=== PATIENT | male | born 1940 | race Caucasian/White ===

== ENCOUNTER 2019-09-05 05:50 | Day surgery (SDC) | payer MEDICARE, OTHER ==
[~2019-09-05] VITALS: Ht 177.8 cm; Wt 86.6 kg
--- OUTSIDE RECORDS SUMMARY | ~2019-09-05 | XMS | Clinical Summary ---
Demographics + + + | Address | [address] | | | [place] [address] | + + + | Home Phone | | + + + | Preferred Language | Unknown | + + + | Marital Status | | + + + | Hindu Affiliation | Unknown | + + + | Race | Unknown | + + + | Ethnic Group | Unknown | + + + Author + + + | Author | [facility] | | | and [place] | + + + | Organization | [facility] | | | and [place] | + + + | Address | Unknown | + + + | Phone | Unavailable | + + + Support + + +---------+ + | Name | Relationship | Address | Phone | + + +---------+ + | Niya Villeda | ECON | Unknown | | + + +---------+ + Care Team Providers + +------+ + | Care Manager Of Drilling Name | Role | Phone | + +------+ + PCP | Unavailable | + +------+ + Allergies + + + + + + | Active Allergy | Reactions | Severity | Noted | Comments | | | | | Date | | + + + + + + | Lisinopril | Cough | Low | 06/13/20 | | | | | | 16 | | + + + + + + Medications + + + +---------+------+------+-------+ | Medication | Sig | Dispensed | Refills | Star | End | Statu | | | | | | t | Date | s | | | | | | Date | | | + + + +---------+------+------+-------+ | tamsulosin | Take 0.4 mg by mouth | | 0 | 07/2 | | Activ | | (FLOMAX) 0.4 mg CAPS | After dinner. | | | 9/20 | | e | | | | | | 16 | | | + + + +---------+------+------+-------+ | fluticasone | 1 spray by Nasal | | 0 | 07/2 | | Activ | | (VERAMYST) 27.5 | route as needed for | | | 9/20 | | e | | MCG/SPRAY nasal | Rhinitis. | | | 16 | | | | spray | | | | | | | + + + +---------+------+------+-------+ | levothyroxine | Take 75 mcg by mouth | | 0 | 07/2 | | Activ | | (SYNTHROID) 75 MCG | every morning | | | 9/20 | | e | | tablet | before breakfast. | | | 16 | | | + + + +---------+------+------+-------+ | omeprazole | Take 40 mg by mouth | | 0 | 07/2 | | Activ | | (PRILOSEC) 40 MG | daily. | | | 9/20 | | e | | capsule | | | | 16 | | | + + + +---------+------+------+-------+ | losartan (COZAAR) | Take 100 mg by mouth | | 0 | 07/2 | | Activ | | 100 MG tablet | daily. | | | 9/20 | | e | | | | | | 16 | | | + + + +---------+------+------+-------+ | atorvaSTATin | Take 40 mg by mouth | | 0 | 07/2 | | Activ | | (LIPITOR) 40 mg | daily. | | | 9/20 | | e | | tablet | | | | 16 | | | + + + +---------+------+------+-------+ | terazosin (HYTRIN) | Take 5 mg by mouth | | 0 | 07/2 | | Activ | | 5 mg capsule | nightly. | | | 9/20 | | e | | | | | | 16 | | | + + + +---------+------+------+-------+ | primidone | Take 50 mg by mouth | | 0 | 07/2 | | Activ | | (MYSOLINE) 50 mg | daily. | | | 20 | | e | | tablet | | | | 16 | | | + + + +---------+------+------+-------+ | amLODIPine | Take 5 mg by mouth | | 0 | 08/0 | | Activ | | (NORVASC) 5 mg | daily. | | | 12/05 | | e | | tablet | | | | 17 | | | + + + +---------+------+------+-------+ | finasteride | Take 1 tablet by | 90 | 3 | 11/0 | | Activ | | (PROSCAR) 5 mg | mouth daily. 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 | + + Last Filed Vital Signs + + + + | Vital Sign | Reading | Time Taken | + + + + | Blood Pressure | - | - | + + + + | Pulse | 68 | 06/16/2017 1140 PDT | + + + + | Temperature | - | - | + + + + | Respiratory Rate | - | - | + + + + | Oxygen Saturation | - | - | + + + + | Inhaled Oxygen | - | - | | Concentration | | | + + + + | Weight | 82.6 kg (182 lb) | 06/16/20171139 PDT | + + + + | Height | 177.8 cm (5' 10") | 06/16/20171139 PDT | + + + + | Body Mass Index | 26.11 | 06/16/20171139 PDT | + + + + Plan of Treatment + + + + + | Health Maintenance | Due Date | Last Done | Comments | + + + + + | Vaccine: | | | | | Dtap/Tdap/Td (1 - | 8 | | | | Tdap) | | | | + + + + + | Vaccine: Zoster (1 | | | | | of 2) | 9 | | | + + + + + | Vaccine: | | | | | Pneumococcal 65+ | 4 | | | | Low/Medium Risk (1 | | | | | of 2 - PCV13) | | | | + + + + + | Vaccine: Influenza | | | | | (#1) | 9 | | | + + + + + Results Not on filefrom Last 3 Months
--- OUTSIDE RECORDS SUMMARY | ~2019-09-05 | XMS | Clinical Summary ---
Demographics + + + | Address | [address] | | | [place] [address] | + + + | Home Phone | | + + + | Preferred Language | Unknown | + + + | Marital Status | | + + + | Anabaptist Affiliation | Unknown | + + + | Race | Unknown | + + + | Ethnic Group | Unknown | + + + Author + + + | Author | [facility] (Historical as of | | | 07-02-19) | + + + | Organization | [facility] (Historical as of | | | 07-02-19) | + + + | Address | Unknown | + + + | Phone | Unavailable | + + + Support + + +---------+ + | Name | Relationship | Address | Phone | + + +---------+ + | Niya Villeda | ECON | Unknown | | + + +---------+ + | Jose R Bishop | ECON | Unknown | | + + +---------+ + | Message,Detailed | ECON | Unknown | | + + +---------+ + Care Team Providers + +------+ + | Care Blend Technician Name | Role | Phone | + +------+ + PP | Unavailable | + +------+ + Allergies + + + + + + | Active Allergy | Reactions | Severity | Noted | Comments | | | | | Date | | + + + + + + | Lisinopril | Cough | Low | 06/13/20 | | | | | | 16 | | + + + + + + Current Medications + + +--------+---------+------+------+-------+ | Prescription | Sig. | Disp. | Refills | Star | End | Statu | | | | | | t | Date | s | | | | | | Date | | | + + +--------+---------+------+------+-------+ | tamsulosin | Take 0.4 mg by mouth | | | | | Activ | | (FLOMAX) 0.4 MG | After dinner. | | | | | e | | capsule | | | | | | | + + +--------+---------+------+------+-------+ | fluticasone | 1 spray by Nasal | | | | | Activ | | (VERAMYST) 27.5 | route as needed for | | | | | e | | MCG/SPRAY nasal | Rhinitis. | | | | | | | spray | | | | | | | + + +--------+---------+------+------+-------+ | levothyroxine | Take 75 mcg by mouth | | | | | Activ | | (SYNTHROID) 75 MCG | every morning | | | | | e | | tablet | before breakfast. | | | | | | + + +--------+---------+------+------+-------+ | omeprazole | Take 40 mg by mouth | | | | | Activ | | (PRILOSEC) 40 MG | daily. | | | | | e | | capsule | | | | | | | + + +--------+---------+------+------+-------+ | losartan (COZAAR) | Take 100 mg by mouth | | | | | Activ | | 100 MG tablet | daily. | | | | | e | + + +--------+---------+------+------+-------+ | atorvastatin | Take 40 mg by mouth | | | | | Activ | | (LIPITOR) 40 MG | daily. | | | | | e | | tablet | | | | | | | + + +--------+---------+------+------+-------+ | terazosin (HYTRIN) | Take 5 mg by mouth | | | | | Activ | | 5 MG capsule | nightly. | | | | | e | + + +--------+---------+------+------+-------+ | primidone | Take 50 mg by mouth | | | | | Activ | | (MYSOLINE) 50 MG | daily. | | | | | e | | tablet | | | | | | | + + +--------+---------+------+------+-------+ | amLODIPine | Take 5 mg by mouth | | | | | Activ | | (NORVASC) 5 MG | daily. | | | | | e | | tablet | | | | | | | + + +--------+---------+------+------+-------+ | finasteride | Take 1 tablet by | 90 | 3 | 11/0 | | Activ | | (PROSCAR) 5 MG | mouth daily. | tablet | | 06/04 | | e | | tablet | | | | 17 | | | + + +--------+---------+------+------+-------+ Active Problems + + + | Problem [...] | | + +-------+ +--------+------+ + + +---------+ + | Alcohol Use | Drinks/We | oz/Week | Comments | | | ek | | | + + +---------+ + | Yes | | | | + + +---------+ + + + + | Sex Assigned at | Date Recorded | | | | + + + | Not on file | | + + + Last Filed Vital Signs + + + + | Vital Sign | Reading | Time Taken | + + + + | Blood Pressure | - | - | + + + + | Pulse | 68 | 06/16/2017 11:36 AM PDT | + + + + | Temperature | - | - | + + + + | Respiratory Rate | - | - | + + + + | Oxygen Saturation | 98% | 06/16/2017 11:36 AM PDT | + + + + | Inhaled Oxygen | - | - | | Concentration | | | + + + + | Weight | 82.6 kg (182 lb) | 06/16/2017 11:36 AM PDT | + + + + | Height | 177.8 cm (5' 10") | 06/16/2017 11:36 AM PDT | + + + + | Body Mass Index | 26.11 | 06/16/2017 11:36 AM PDT | + + + + Plan [...] Results Not on filefrom Last 3 Months Insurance + +--------+ +------+-------+ + | Payer | Benefi | Subscriber | Type | Phone | Address | | | t Plan | ID | | | | | | / | | | | | | | Group | | | | | + +--------+ +------+-------+ + | MEDICARE | MEDICA | [id number] | | | [address] | | | RE | | | | [place] [phone] | | | IP-OP | | | | | + +--------+ +------+-------+ + | AETNA | AETNA | [id number] | | | | | | GENERI | | | | | | | C | | | | | + +--------+ +------+-------+ + + +--------+ +--------+ + + | Guarantor Name | Accoun | Relation to | Date | Phone | Billing Address | | | t Type | Patient | of | | | | | | | | | | + +--------+ +--------+ + + | SEBASTIAN BISHOP | Person | Self [birth year] Home: | [address] | | | al/Fam | | 1940 | [phone] [place], [place] | | | avi | | | [phone] | [phone] | + +--------+ +--------+ + +
--- OUTSIDE RECORDS SUMMARY | ~2019-09-05 | XMS | Encounter Summary ---
Demographics + + + | Address | [address] | | | [place] [address] | + + + | Home Phone | | + + + | Preferred Language | Unknown | + + + | Marital Status | | + + + | Tenriism Affiliation | Unknown | + + + | Race | White | + + + | Ethnic Group | Not or | + + + Author + + + | Author | [facility] | + + + | Organization | [facility] | + + + | Address | Unknown | + + + | Phone | Unavailable | + + + Support + + + + + | Name | Relationship | Address | Phone | + + + + + | Jose R Sutton | ECON | [address] | | | | | [place] | | | | | [address] | | + + + + + Care Team Providers + +------+ + | Care Center Specialists Name | Role | Phone | + +------+ + | Rip Payton MD | PCP | | + +------+ + Encounter Details +--------+ + + + + | Date | Type | Department | Care Team | Description | +--------+ + + + + | 10/16/ | Documentati | Otolaryngology | Rip Siddiqui | | | 2017 | on | Head and Neck | MD [facility] [address] | | | | | Surgery Services at | [address] | | | | | PPV [phone] | [place], [place] | | | | | [address] | [address] | | | | | Mailcode: [id number] | [phone] | | | | | [facility] | | | | | | [place], [place] | | | | | | [address] | | | | | | [phone] | | | +--------+ + + + + Social History + +-------+ +--------+ + | Tobacco Use | Types | Packs/Day | Years | Date | | | | | Used | | + +-------+ +--------+ + | Former Smoker | | | | 1956 - 1990 | + +-------+ +--------+ + + +---+---+---+ | Smokeless Tobacco: | | | | | Former User | | | | + +---+---+---+ + + +---------+ + | Alcohol Use | Drinks/Week | oz/Week | Comments | + + +---------+ + | Yes | 2 Glasses of wine | 2.0 | | + + +---------+ + + [...] recent travel history available. | + + documented as of this encounter Plan of Treatment Not on filedocumented as of this encounter Visit Diagnoses Not on filedocumented in this encounter"
--- OUTSIDE RECORDS SUMMARY | ~2019-09-05 | XMS | Encounter Summary ---
Demographics + + + | Address | [address] | | | [place] [address] | + + + | Home Phone | | + + + | Preferred Language | Unknown | + + + | Marital Status | | + + + | Moravian Affiliation | Unknown | + + + | Race | White | + + + | Ethnic Group | Not or | + + + Author + + + | Author | [facility] | + + + | Organization | [facility] | + + + | Address | Unknown | + + + | Phone | Unavailable | + + + Support + + + + + | Name | Relationship | Address | Phone | + + + + + | Jose R Sutton | ECON | [address] | | | | | [place] | | | | | [address] | | + + + + + Care Team Providers + +------+ + | Care Cereal Supervisor Name | Role | Phone | + +------+ + | Rip Payton MD | PCP | | + +------+ + Encounter Details +--------+ + + + + | Date | Type | Department | Care Team | Description | +--------+ + + + + | 10/05/ | Abstract | Otolaryngology | Willis Sanon, | | | 2017 | | Head and Neck | [address] | | | | | Surgery Services at | [address] | | | | | [phone] | [place], [place] | | | | | [address] | [address] | | | | | Mailcode: [address] | [phone] | | | | | [facility] | | | | | | [place], [place] | | | | | | [address] | | | | | | [phone] | | | +--------+ + + + + Social History + +-------+ +--------+------+ | Tobacco Use | Types | Packs/Day | Years | Date | | | | | Used | | + +-------+ +--------+------+ | Never Assessed | | | | | + +-------+ [...]
--- OUTSIDE RECORDS SUMMARY | ~2019-09-05 | XMS | Encounter Summary ---
Demographics + + + | Address | [address] | | | [place] [address] | + + + | Home Phone | | + + + | Preferred Language | Unknown | + + + | Marital Status | | + + + | Faith Affiliation | Unknown | + + + [...] [place] | | | | | [address] | | + + + + + Care Team Providers + +------+ + | Care Vp Cardiovascular Service Line Name | Role | Phone | + +------+ + | Rip Payton MD | PCP | | + +------+ + Encounter Details +--------+ + + + + | Date | Type | Department | Care Team | Description | +--------+ + + + + | 10/29/ | Telephone | Otolaryngology | Rip Siddiqui | | | 2017 | | Head and Neck | MD [facility] [address] | | | | | Surgery Services at | [address] | | | | | [phone] | [place], [place] | | | | | [address] | [address] | | | | | Mailcode: [id number] | [phone] | | | | | [facility] | | | | | | [place], [place] | | | | | | [address] | | | | | | [phone] | | | +--------+ + + + [...]
--- OUTSIDE RECORDS SUMMARY | ~2019-09-05 | XMS | Encounter Summary ---
Demographics + + + | Address | [address] | | | [place] [address] | + + + | Home Phone | | + + + | Preferred Language | Unknown | + + + | Marital Status | | + + + | Scientologist Affiliation | Unknown | + + + | Race | White | + + + | Ethnic Group | Not or | + + + Author + + + | Author | [facility] | + + + | Organization | [facility] | + + + | [...] [place] | | | | | [address] | | + + + + + Care Team Providers + +------+ + | Care Marine Drafter Name | Role | Phone | + +------+ + | Rip Payton MD | PCP | | + +------+ + Reason for Visit Consultation (Routine) +--------+--------+ + + + + | Status | Reason | Specialty | Diagnoses / | Referred By | Referred To | | | | | Procedures | Contact | Contact | +--------+--------+ + + + + | Closed | | Otolaryngolog | Diagnoses | Josiane, | Artur, | | | | y | | Pedro Pablo Hat[place], | Rip Glynn MD | | | | | Natalie | | [address] [facility] | | | | | s, | [place] | [facility] | | | | | unspecified | HEAD & NECK | [address] [place], | | | | | | [address] | [place] | | | | | | [address] | [address] | | | | | | [address] | Phone: | | | | | | [place], | [phone] | | | | | | [place] [address] | Fax: | | | | | | Phone: | [phone] | | | | | | [phone] | | | | | | | Fax: | | | | | | | [phone] | | +--------+--------+ + + + + Encounter Details +--------+---------+ + + + | Date | Type | Department | Care Team | Description | +--------+---------+ + + + | 10/12/ | Office | Otolaryngology | Rip Siddiqui | Submandibular duct | | 2017 | Visit | Head and Neck | MD Renard [address] | obstruction (Primary | | | | Surgery Services at | [facility] [address] | Dx) | | | | [facility] [address] | [place], [place] | | | | | [address] | [address] | | | | | Mailcode: PV01 | [phone] | | | | | [facility] | | | | | | [place], [place] | | | | | | [address] | | | | | | [phone] | | | +--------+---------+ + + + Social History + +-------+ [...] + + documented as of this encounter Last Filed Vital Signs + + + + + | Vital Sign | Reading | Time Taken | Comments | + + + + + | Blood Pressure | 124/80 | 10/12/2017 2:24 PM | | | | | PST | | + + + + + | Pulse | 64 | 10/12/2017 2:24 PM | | | | | PST | | + + + + + | Temperature | - | - | | + + + + + | Respiratory Rate | - | - | | + + + + + | Oxygen Saturation | - | - | | + + + + + | Inhaled Oxygen | - | - | | | Concentration | | | | + + + + + | Weight | 81.6 kg (179 lb 12.8 | 10/12/2017 2:24 PM | | | | oz) | PST | | + + + + + | Height | - | - | | + + + + + | Body Mass Index | - | - | | + + + + + documented in this encounter Progress Notes Rip Siddiqui MD - 10/12/2017 2:[address] Boswell's note for the com plete details of the history and physical exam. I reviewed the resident's findings and repea kacy these components of the physical exam: complete history and complete physical examira Thorne participated in the formulation of the diagnosis and treatment plan. Briefly, Mr. Sutton is 77y M with recurrent left submandibular sialadenitis. Will obtain a CT scan of the neck to assess for sialoliths not appreciated on exam. Will call him with the results of this ex am when available. He does not want a submandibular gland excision, but would like to pursu e sialendoscopy; if his scan does not show any obvious contraindication to this, will procee d with sialendoscopy in the near future. Rip Siddiqui MD PhD Software Engineering Supervisor, Head & Neck Surgery and Oncology [email or web address] Mary Carmen Bear MD - 10/12/2017 2:15 PM PST HEAD AND NECK SURGERY NEW PATIENT CLINIC NOTE Chief complaint: intermittent submandibular gland swelling History of Present Illness: Sebastian Sutton is a 77 y.o. male seen in consultation fr om Dr. Joshua regarding management of a left sided submandibular gland swelling. Mr. Sutton has had this problem for over 20 years. He was initially diagnosed by an oral surg jazmin who injected dye into the duct and took x-rays. He was offered surgery but declined due to risks associated with it. He has continue to have intermittent swelling since that time. It is associated with eating, increases with food intake. Sometimes the swelling will stick around for a few weeks but usually not that long. He can sometimes shoot out saliva when it gets under pressure. It is uncomfortable when it swells up, but not extremely painful, and raymond orozco can still continue with his day. He has never had an infection (denies any associated eryt kale, every taking antibiotics, or extremely painful episodes). The discomfort is bothersome , and he also doesn't like the way that it looks. Today is about an average day. He has swel led up to the point that he "looks like a chipmunk." Review of Systems: 14 systems reviewed and pertinent positives/negatives reported in the HPI above. Please see patient intake questionnaire for the remainder of ROS reviewed. Allergies and Sensitivities: Lisinopril No current outpatient prescriptions on file. No current facility-administered medications for this visit. No past medical history on file. No past surgical history on file. Social History: Social History Substance Use Topics Smoking status: Former Smoker Start date: 1956 Quit date: 1990 Smokeless tobacco: Former User Alcohol use 1.2 oz/week 2 Glasses of wine per week Wine with dinner Family history breast cancer in mother Examination: BP 124/80 | Pulse 64 | Wt 81.6 kg (179 lb 12.8 oz) General: Well nourished, well-developed patient, calm Face: no facial deformities or dysmorphic features, no facial tenderness Eyes: sclera anicteric, conjunctiva pink Ears: Right external ear, external auditory canal, and tympanic membrane normal, no effusi ons or lesions. Left external ear, external auditory canal, and tympanic membrane normal, no effusions or lesions Nose: Normal external appearance, anterior rhinoscopy demonstrates healthy pink mucosa, no concerning lesions Oral cavity: Normal inter-incisal distance, fair dentition, lower partial denture,normal bu ccal mucosa, floor of mouth, oral tongue, retromolar trigone, alveolar ridges, hard palate, on inspection and palpation. No stone palpated in the duct, submandibular gland on the left is enlarged compared the the right, no discrete mass within the gland, non-tender. Saliva is not easily expressed from the left. Oropharynx: Normal tonsillar pillars, tongue base, soft palate, pharyngeal wall on inspecti on. Tonsils and uvula surgically absent. Neck: On inspection and palpation, no cervical lymphadenopathy identified, no palpable thyr oid lesions, and the trachea is in the midline. L submandibular salivary gland enlarged. Respiratory and Voice: normal respiratory effort, no stridor, slightly rough voice Cardiovascular: regular heart rate Skin: no obvious skin lesions within scalp, head or neck skin Assessment: 77 yo male with left sided submandibular gland swelling. There are no palpable stones on ex am, but we do not have a CT scan. We discussed his options, including conservative managemen t (as he has been doing), sialoendoscopy, and gland excision. He does not desire removal and so sialoendoscopy was discussed in detail. We discussed risks and benefits, including that not everyone has improvement after this, and improvement may be transient. He is interested in sialoendoscopy. Plan: 1. Obtain CT scan (in [place]). 2. We will call him after the CT scan is done and discuss results and schedule him if appro priate (i.e. No large stone that would preclude endoscopy, nothing concerning for malignancy , although this is very unlikely). Mary Carmen Boswell MD Otolaryngology, PGY-2 Pager [phone] documented in this encounter Plan of Treatment Not on filedocumented as of this encounter Visit Diagnoses + + | Diagnosis | + + | Submandibular duct obstruction - Primary Other specified diseases of the salivary | | glands | + + documented in this encounter
--- OUTSIDE RECORDS SUMMARY | ~2019-09-05 | XMS | Clinical Summary ---
Demographics + + + | Address | [address] | | | [place] [address] | + + + | Home Phone | | + + + | Preferred Language | Unknown | + + + | Marital Status | | + + + | Christian Affiliation | Unknown | + + + | Race | White | + + + | Ethnic Group | Not or | + + + Author + + + | Author | [facility] | + + + | Organization | [facility] | + + + | Address | Unknown | + + + | Phone | Unavailable | + + + Support + + + + + | Name | Relationship | Address | Phone | + + + + + | Jose R Sutton | ECON | [address] | | | | | [place] | | | | | [address] | | + + + + + Care Team Providers + +------+ + | Care Granulator Operator Name | Role | Phone | + +------+ + | Rip Payton MD | PCP | | + +------+ + Source Comments [facility] is fully live on both [facility] and [facility] Allergies + + + + + + | Active Allergy | Reactions | Severity | Noted | Comments | | | | | Date | | + + + + + + | Lisinopril | Cough | | 10/12/20 | | | | | | 17 | | + + + + + + Medications + + + +---------+------+------+-------+ | Medication | Sig | Dispensed | Refills | Star | End | Statu | | | | | | t | Date | s | | | | | | Date | | | + + + +---------+------+------+-------+ | atorvastatin 40 mg | Take 40 mg by mouth | | 0 | | | Activ | | oral tablet | once daily | | | | | e | + + + +---------+------+------+-------+ | finasteride 5 mg | Take 5 mg by mouth | | 0 | | | Activ | | oral tablet | once daily | | | | | e | + + + +---------+------+------+-------+ | fluticasone 50 | Instill 2 sprays | | 0 | | | Activ | | mcg/actuation nasal | into each nostril | | | | | e | | spray,suspension | once daily | | | | | | + + + +---------+------+------+-------+ | levothyroxine 75 | Take 75 mcg by mouth | | 0 | | | Activ | | mcg oral tablet | before breakfast | | | | | e | + + + +---------+------+------+-------+ | losartan 100 mg | Take 100 mg by mouth | | 0 | | | Activ | | oral tablet | once daily | | | | | e | + + + +---------+------+------+-------+ | omeprazole 40 mg | Take 40 mg by mouth | | 0 | | | Activ | | oral capsule,delayed | once daily | | | | | e | | release(/ROSA) | | | | | | | + + + +---------+------+------+-------+ | primidone 50 mg | Take 50 mg by mouth | | 0 | | | Activ | | oral tablet | three times daily | | | | | e | + + + +---------+------+------+-------+ | ALBUTEROL SULFATE | Inhale | | 0 | | | Activ | | (PROAIR HFA INHL) | | | | | | e | + + + +---------+------+------+-------+ | tamsulosin 0.4 mg | Take 0.4 mg by mouth | | 0 | | | Activ | | oral | once daily | | | | | e | | capsule,extended | | | | | | | | release 24hr | | | | | | | + + + +---------+------+------+-------+ | terazosin 5 mg | Take 5 mg by mouth | | 0 | | | Activ | | oral capsule | once daily at | | | | | e | | | bedtime | | | | | | + + + +---------+------+------+-------+ | cetirizine 10 mg | Take 10 mg by mouth | | 0 | | | Activ | | oral tablet | once daily | | | | | e | + + + +---------+------+------+-------+ | amLODIPine 5 mg | Take 5 mg by mouth | | 0 | | | Activ | | oral tablet | once daily | | | | | e | + + + +---------+------+------+-------+ Active Problems Not on file Social History + +-------+ +--------+ + | [...] | | + + + + + Plan of Treatment + + + + + | Health Maintenance | Due Date | Last Done | Comments | + + + + + | Pneumococcal | | | | | vaccination (1 of 2 | 4 | | | | - PCV13) | | | | + + + + + | Influenza (Flu) | | | | | vaccination (#1) | 9 | | | + + + + + Results Not on filefrom Last 3 Months Insurance + +--------+ +--------+ + +--------+ | Payer | Benefi | Subscriber | Effect | Phone | Address | Type | | | t Plan | ID | marv | | | | | | / | | Dates | | | | | | Group | | | | | | + +--------+ +--------+ + +--------+ | MEDICARE | MEDICA | xxxxxxxxxx | | [phone] | [address] | [address] | | | RE A & | | [phone] | | | [address] | | esent | | [place] | | | | | | | | [phone] | | + +--------+ +--------+ + +--------+ | AETNA NETWORK | AETNA | xxxxxxxxxx | 01/15/20 | | | PPO | | | NETWOR | | 14-Pre | | | | | | K | | sent | | | | + +--------+ +--------+ + +--------+ + +--------+ +--------+ + + | Guarantor Name | Accoun | Relation to | Date | Phone | Billing Address | | | t Type | Patient | of | | | | | | | | | | + +--------+ +--------+ + + | Sebastian Sutton | Person | Self [birth year] | [address] | | Alex | angella/Fam | | 1940 | [phone] | [place] | | | avi | | | 0 (Home) | [phone] | + +--------+ +--------+ + +"
--- OUTSIDE RECORDS SUMMARY | ~2019-09-05 | XMS | Encounter Summary ---
Demographics + + + | Address | [address] | | | [place] [address] | + + + | Home Phone | | + + + | Preferred Language | Unknown | + + + | Marital Status | | + + + | Adventist Affiliation | Unknown | + + + | Race | White | + + + | Ethnic Group | Not or | + + + Author + + + | Author | [facility] | + + + | Organization | [facility] | + + + | Address | Unknown | + + + | Phone | Unavailable | + + + Support + + + + + | Name | Relationship | Address | Phone | + + + + + | Jose R Sutton | ECON | [address] | | | | | [place] | | | | | [address] | | + + + + + Care Team Providers + +------+ + | Care Value Stream Manager Name | Role | Phone | + +------+ + | Rip Payton MD | PCP | | + +------+ + Encounter Details +--------+ + + + + | Date | Type | Department | Care Team | Description | +--------+ + + + + | 10/29/ | Documentati | Otolaryngology | Rip Siddiqui | | | 2017 | on | Head and Neck | MD Renard [address] | | | | | Surgery Services at | [address] | | | | | [facility] [address] | [place], [place] | | | | | [address] | [address] | | | | | Mailcode: PV01 | [phone] | | | | | [facility] | | | | | | [place], [place] | | | | | | [address] | | | | | | [phone] | | | +--------+ + + + [...]
[~2019-09-05 05:50] MED LIST: ANORO ELLIPTA1 EACH INH; CETIRIZINE HCL10 MG PO; COZAAR100 MG PO; FINASTERIDE5 MG PO; FLOMAX0.4 MG PO; FLONASE ALLERG9.9 ML NAS; LEVOTHYROXINE75 MCG PO; LIPITOR40 MG PO; MYSOLINE50 MG PO; NORVASC2.5 MG PO; PRILOSEC OTC20 MG PO; TERAZOSIN HCL5 MG PO; ZESTRIL5 MG PO; ZOCOR20 MG PO
--- NOTE | 2019-09-05 09:51 | NUR ---
09/05/19 0951 Sheets,Mónica 0941 PT ARRIVED TO PACU ON 10L VIA MASK, RESP EVEN AND UNLABORED. PT ASLEEP AND SNORING NOTED. 500 OUTPUT NOTED IN CBI BAG, BRIGHT RED. CBI RATE INCREASED. PT MINIMALLY REACTIVE TO PAINFUL STIMULI. 0950 PT WOKE TO TACTILE STIMULI AND PT DENIES PAIN. PT DID NOT OPEN HIS EYES AND IS REORIENTED TO PACU. PT BACK TO SLEEP WITH SNORING NOTED.
--- NOTE | 2019-09-05 10:19 | NUR ---
PT ALERT, ORIENTED AND SUPPORTED BY HIS UMESH. BOTH PLEASANT SEEM PEPARED AND HAD FEW QUESTIONS. PT REQUESTED PRAYER, WILL FOLLOW NEEDED
--- NOTE | 2019-09-05 10:38 | NUR ---
PT TO FLOOR VIA BED WITH CHERIE DAIGLE. PT AWAKE AND ALERT. AT BEDSIDE. CBI AT MODERATE DRIP RATE. URINE DARK PINK. DENIES PAIN. ASKED FOR COFFEE. GIVEN ICE WATER AND JELLO FIRST. DENIES NAUSEA.
--- NOTE | 2019-09-05 11:01 | NUR ---
PT A&OX4. ON RA, RESP EVEN AND NON LABORED. VS STABLE. PT TOLERATING PO INTAKE WELL. CBI INFUSING MODERATE DRIP RATE. MED RED CLORED URINE, NO CLOTS NOTED. PT DENIES PAIN. PERSONAL SUPPLIES AND CALL LIGHT WITHIN REACH.
--- NOTE | 2019-09-05 11:30 | NUR ---
PT DOING WELL, SITTING UP IN BED. VS STABLE AT THIS TIME. CBI INFUSING, RED BLOOD NOTED IN BAG, NO CLOTS. PT DENIES PAIN. PERSONAL SUPPLIES WITHIN REACH.
--- NOTE | 2019-09-05 12:23 | NUR ---
PT TO M/S FOLLOWING SURGERY. HE IS ALERT, ORIENTED AND COULD TELL HE SEEMED ALITTLE CHILLED. TURNED TEMP UP IN , AND HAD DARWIN [facility]SU BRING HIM A WARM BLANKET. PT WAS CONCERNED ABOUT THE COLOR OF HIS URINE, LET CHERIE BARRAGAN KNOW. PTS' HAS LEFT TO RUN SOME ERRANDS, WILL RETURN. WILL FOLLOW NEEDED.
--- NOTE | 2019-09-05 12:49 | NUR ---
PT CALL LIGHT ON. PT REQUESTS MORE COFFEE AND WATER. WATER AND COFFEE REFILLED. 3 WAY BLADDER IRRIGATION BAG VERY FULL, EMPTIED. PT ASSISTED WITH ORDERING LUNCH. NO ADDITIONAL REQUESTS OR COMPLAINTS AT THIS TIME. CALL LIGHT WITHIN REACH.
--- NOTE | 2019-09-05 13:55 | NUR ---
pt a&ox4, on ra, resp even and non labored. CBI infusing, pink colored urine. Pt denies pain. Personal supplies and call light within reach.
--- NOTE | 2019-09-05 17:42 | NUR ---
PT EATING DINNER AT THIS TIME, RESP EVEN AND NON LABORED. PT REQUESTING TO TAKE 1700 MEDICATIONS AT HS THIS EVENING. WILL PASS OFF TO NEXT SHIFT. PT HAS NO NEEDS AT THIS TIME. CBI INFUSING, BILLY PATENT AND DRAINING APPROPRIATELY. FAINT RED COLORED URINE. PT DENIES PAIN. NO NEEDS AT THIS TIME. CALL LIGHT WITHIN REACH.
--- NOTE | 2019-09-05 18:18 | NUR ---
PATIENT IN BED TALKING ON THE PHONE. FRESH WATER GIVEN. CALL LIGHT IN REACH. NO FURTHER NEEDS AT THIS TIME.
--- NOTE | 2019-09-05 20:14 | NUR ---
REPORT RECEIVED FROM DAY SHIFT RN. PT LYING IN BED, ALERT AND PLEASANT. AT BEDSIDE. CBI PATENT, BILLY DRAINING LIGHT PINK URINE. CPOX READS 95% ON RA. IV FLUIDS INFUSING WITHOUT ISSUE. PT DENIES OTHER NEEDS AT THIS TIME. CALL LIGHT IN REACH.
--- NOTE | 2019-09-05 23:06 | NUR ---
PT LYING IN BED, ALERT AND ORIENTED. ASSESSMENT COMPLETE. PM MEDS GIVEN WITHOUT DIFFICULTY. CBI PATENT, BILLY DRAINING PINK TINGED URINE. NO CLOTS. PT DENIES PAIN, JUST A LITTLE IRRITATION AT THE TIP OF HIS PENIS THAT HE STATES IS FROM THE BILLY CATHETER. SM AMOUNT OF BLOODY DRAINAGE FROM URETHRA NOTED. CPOX IN PLACE, READING 95% ON RA. SCD'S ON. NO OTHER REQUESTS AT THIS TIME. CALL LIGHT IN REACH.
--- NOTE | 2019-09-06 00:24 | NUR ---
PT AWAKE, STATES HE'S BEEN UNABLE TO FALL ASLEEP. REFUSES SLEEP AID. SLEEP MASK AND EARPLUGS PROVIDED EARLIER IN THE SHIFT. PT DENIES PAIN. CPOX 92-95% ON RA. BILLY DRAINING PINK TINGUED URINE, NO CLOTS NOTED. PT DENIES OTHER NEEDS AT THIS TIME.
--- NOTE | 2019-09-06 02:29 | NUR ---
PT IN BED RESTING WITH EYE MASK ON. ASSESSMENT COMPLETE. PT DENIES PAIN. CBI PATENT, BILLY DRAINING PINK TINGED URINE. NO CLOTS NOTED. SCD'S IN PLACE, CPOX READS 94% ON RA. PT DENIES NEEDS AT THIS TIME.
--- NOTE | 2019-09-06 05:01 | NUR ---
PT RESTED WELL THROUGHOUT THE NIGHT. CBI CLAMPED AT 0230. BILLY CONTINUES TO DRAIN PINK TINGED URINE, NO CLOTS NOTED. PT DENIES PAIN. PT ANEESH REG DIET. CPOX IN PLACE, READING 92-95% ON RA. PT TO REMAIN ON BED REST, SCD'S IN PLACE. NS @ 100 ML/HR.
--- NOTE | 2019-09-06 06:45 | NUR ---
PT RESTING IN BED WITH EYE MASK ON. FLUSHED CBI LINE, BILLY DRAINING LIGHT PINK URINE. SOME SEDIMENT NOTED. PT CONTINUES TO DENY PAIN. CPOX IN PLACE, 94% ON RA. COFFEE GIVEN. CALL LIGHT IN REACH.
[2019-09-06] MEDS ORDERED: LEVAQUIN500 MG PO (09:02)
[2019-09-06] MEDS ORDERED: PERCOCET 5-3251 EACH PO (09:03)
--- NOTE | 2019-09-06 09:43 | NUR ---
MED REC COMPLETE
[2019-09-06] MEDS ORDERED: FLOMAX0.4 MG PO (09:45)
--- NOTE | 2019-09-06 12:53 | NUR ---
PT DRESSED AND GETTING READY FOR HIS WC RIDE TO THE DOOR. WE HAD A FIST BVUMP, THANKED ME FOR CHECKING ON HIM. EXTENDED A BLESSING. WILL FOLLOW NEEDED
--- NOTE | 2019-09-06 13:15 | PATH ---
[facility] [address], [place] [address] Signed SPECIMEN(S): A PROSTATE CHIPS SPECIMEN SOURCE: A. PROSTATE CHIPS CLINICAL HISTORY: BPH. FINAL PATHOLOGIC DIAGNOSIS: Prostate, transurethral resection: - Nodular glandular and stromal hyperplasia. - Negative for malignancy and atypia. LJA:cml:C2NR MICROSCOPIC EXAMINATION: Histologic sections of all submitted blocks are examined by light microscopy. These findings, together with the gross examination, support the pathologic diagnosis. GROSS DESCRIPTION: The specimen, labeled "WC, prostate chips," is received in formalin and consists of 29 g of pink-morelos, irregular shaped, rubbery tissue fragments that aggregate measure 11.0 x 6.3 x 2.1 cm. Approximately 30% of the specimen is submitted in eight cassettes (A1-A8). JS (under the direct supervision of a pathologist) The Gross Description was prepared using a voice recognition system. The report was reviewed for accuracy; however, sound-alike word errors, addition and/or deletions may occur. If there is any question about this report, please contact Client Services. PERFORMING LABORATORY: The technical component was performed by [facility], [address] [place] [id number] (Malter Operator: Zulay Henderson MD; CLIA# [id number]). [facility] [address] [address] (Malter Operator: Dangelo Regalado MD; CLIA# [id number]). Diagnostician: Dangelo Regalado MD Pathologist Electronically Signed 09/06/2019 PATIENT NAME: HUA BISHOP PATHOLOGY DATE OF : 38 REPORT #: [id number] PHYSICIAN: [facility] PCP: [facility] DO REPORT IS CONFIDENTIAL AND NOT TO BE RELEASED WITHOUT AUTHORIZATION [address] [place], [place] [address] Signed Copies: ~ PATIENT NAME: HUA BISHOP PATHOLOGY DATE OF : 38 REPORT #: [id number] PHYSICIAN: [facility] PCP: [facility] DO REPORT IS CONFIDENTIAL AND NOT TO BE RELEASED WITHOUT AUTHORIZATION
--- NOTE | 2019-09-06 17:34 | OR ---
[facility] [address] [place], [place] [address] Signed DATE OF OPERATION: 09/05/2019 SURGEON: Magalys Rogel MD PREOPERATIVE DIAGNOSIS: Severe trilobar benign prostatic hyperplasia with active lower urinary tract symptoms. POSTOPERATIVE DIAGNOSIS: Severe trilobar benign prostatic hyperplasia with active lower urinary tract symptoms. PROCEDURES PERFORMED: 1. Urethral dilation using Michael sounds from 14-Italian to 26-Italian. 2. Transurethral resection of the prostate. ANESTHESIA: General. ESTIMATED BLOOD LOSS: 30 mL. COMPLICATIONS: None. SPECIMENS: Prostate chips sent to Pathology for evaluation. DRAINS: A 22-Italian 3-way De La Vega catheter, connected to continuous bladder irrigation. INDICATION FOR PROCEDURE: Mr. Bishop is an 79-year-old gentleman with a long-standing history of benign prostatic hyperplasia. He recently presented to my clinic with complaints of significant weakness in his force of stream, along with urgency and frequency symptoms. He has been taking Flomax and finasteride without any significant improvement in his symptoms. After undergoing cystoscopy, which confirmed the presence of trilobar benign prostatic hyperplasia, the patient agreed to undergo definitive management of his symptoms in the form of transurethral resection of the prostate. The risks and benefits of the procedure were explained to the patient in detail and he has agreed to proceed. OPERATIVE FINDINGS: Electronically Signed By: MAGALYS ROGEL MD 09/06/19 1734 PATIENT NAME: HUA BISHOP OPERATIVE REPORT DATE OF : 38 REPORT #: [id number] PHYSICIAN: MAGALYS ROGEL MD PCP: [facility] DO REPORT IS CONFIDENTIAL AND NOT TO BE RELEASED WITHOUT AUTHORIZATION [facility] [address] [place], [place] [address] Signed The patient's urethra was diminutive. The patient's urethral meatus was mildly diminutive upon inspection of the external genitalia. His urethra was dilated using [place] sounds from 14-Italian to 26-Italian without difficulty. Cystoscopy revealed the presence of a very large median bar. The bilateral ureteral orifices were not located near the median bar, so resection of the median bar was performed without difficulty. There was no evidence of any suspicious masses, lesions, or stones within the patient's bladder on cystoscopy. The left lateral lobe and right lateral lobe of the prostate were also resected completely down to the level of the verumontanum during today's procedure. At the end of the procedure, a 22-Italian three-way De La Vega catheter was inserted into the patient's bladder and connected to continuous bladder irrigation. DESCRIPTION OF PROCEDURE: After informed consent was obtained, the patient was taken back to the operating room. He was transferred from the [facility] to the operating room table where general anesthesia was induced. He was placed in the dorsal lithotomy position and his genitalia prepped and draped in a standard sterile fashion. The patient's urethral meatus was then dilated using Michael sounds from 14-Italian to 26-Italian without difficulty. Using a 30-degree lens on a 26-Italian introducer, a rigid cystoscope was inserted through his urethra and into his bladder with the help of a visual obturator. The visual obturator was removed and the resectoscope was then inserted. I evaluated the location of the patient's ureteral orifices as well as the wall of the patient's bladder. I then began resection of the very large median lobe using a 24-Italian bipolar loop. After completing resection of the median lobe, I then completed resection of both the left and lateral lobes of the prostatic urethra. The resection was performed down to the level of the verumontanum and did not go distally to the verumontanum. All the adequate hemostasis was achieved and maintained via bipolar electrocautery. Once I was satisfied that enough of the bulky portion of the prostate was removed using the loop, I switched to the bipolar button. Hemostasis was achieved using the bipolar button throughout the entire prostatic urethra. The prostate chips were then irrigated from the patient's bladder using a Samuel syringe. The chips were placed in a specimen cup and sent to the lab for pathologic evaluation. Once all the chips were successfully removed from the patient's bladder and hemostasis had been achieved, the resectoscope was removed leaving the sheath behind. A 0.035 Sensor wire was inserted through the sheath and into the patient's bladder. The sheath was then removed. Over the Sensor wire, a 22-Italian three-way De La Vega catheter was inserted into the patient's bladder and was connected to continuous bladder irrigation. Prior to irrigation attachment, the patient's catheter was flushed manually to confirm placement. The procedure was then terminated. The patient tolerated the procedure well without any complication. He will now be transferred to the postanesthesia care unit in stable condition. Electronically Signed By: MAGALYS ROGEL MD 09/06/19 1734 PATIENT NAME: HUA BISHOP OPERATIVE REPORT DATE OF : 38 REPORT #: [id number] PHYSICIAN: MAGALYS ROGEL MD PCP: [facility] DO REPORT IS CONFIDENTIAL AND NOT TO BE RELEASED WITHOUT AUTHORIZATION [address] [address] Signed DISPOSITION: I discussed the details of today's procedure with the patient's and answered all of her questions. He will stay with us for the night where he will receive adequate pain control and antiemetics as needed. His continuous bladder irrigation will be slowly weaned to keep his urine clear to light pink in color. I anticipate that he will be discharged to home tomorrow morning with his De La Vega catheter to gravity drainage. He was given a prescription for Levaquin 500 mg p.o. daily for 7 days, along with Percocet 5/325 dispense #20 as needed for pain. MD LAURA Trujillo/XAVIERL /[id number] Copies: ~ Electronically Signed By: MAGALYS ROGEL MD 09/06/19 1734 PATIENT NAME: HUA BISOHP OPERATIVE REPORT DATE OF : 38 REPORT #: [id number] PHYSICIAN: MAGALYS ROGEL MD PCP: [facility] DO REPORT IS CONFIDENTIAL AND NOT TO BE RELEASED WITHOUT AUTHORIZATION
== END 2019-09-06 10:10 | disposition home or self-care (01) ==
LOC: DS 05:50 → DSVR 05:51 → DS 06:45 → MS 09:50 → DS 10:10 → MS 10:23 → DS 15:50
PROVIDERS: Urology
PROC: 0VT08ZZ Resection of Prostate, Via Natural or Artificial Opening Endoscopic (ICD-10-PCS; principal; 2019-09-05 06:45)
DX: N40.1 Benign prostatic hyperplasia with lower urinary tract symptoms (principal); N13.8 Other obstructive and reflux uropathy; E78.5 Hyperlipidemia, unspecified; I10 Essential (primary) hypertension; E03.9 Hypothyroidism, unspecified; K21.9 Gastro-esophageal reflux disease without esophagitis; J44.9 Chronic obstructive pulmonary disease, unspecified; Z87.891 Personal history of nicotine dependence; Z88.8 Allergy status to other drugs, medicaments and biological substances; Z79.899 Other long term (current) drug therapy; Z79.51 Long term (current) use of inhaled steroids
CPT/HCPCS: 00914; C1769; J0696; J1100; J1885; J2405; J2704; J3010; J7030; J7120

== ENCOUNTER 2024-05-12 14:13 | Emergency (ER) | payer MEDICARE, OTHER ==
[~2024-05-12] VITALS: Ht 177.8 cm; Wt 78.9 kg
[~2024-05-12 14:13] MED LIST changes: +LEVAQUIN500 MG PO; +PERCOCET 5-3251 EACH PO
[2024-05-12 18:12] LABS: BASOPHILS 0.9 % (0-2); EOSINOPHILS 1.6 % (0-6); HEMATOCRIT 45.5 % (35.0-50.0); HEMOGLOBIN 15.9 g/dL (12.0-18.0); LYMPHOCYTES 34.1 % (24-44); MCH 34.3 (27-36); MCV 97.9 fl (81-99); MONOCYTES 5.2 % (0-12); NEUTROPHILS 58.2 % (39-80); PLATELET COUNT 132 K/uL (140-440); RBC 4.65 M/ul (4.3-5.7); RDW 13.6 (10.5-15.0)
[2024-05-12 18:27] LABS: ALBUMIN 4.1 g/dL (3.4-5.0); ALBUMIN/GLOBULIN RATIO 1.37 (1.1-2.4); BILIRUBIN, TOTAL 0.9 ng/dL (0.2-1.0); CALCIUM 9.1 mg/dL (8.5-10.1); CREATININE, SERUM 1.05 mg/dL (0.70-1.30); PROTEIN, TOTAL 7.1 g/dL (6.4-8.2)
[2024-05-12 19:53] VITALS: BP 177/80
== END 2024-05-12 19:53 | disposition home or self-care (01) ==
LOC: ED 14:13
PROVIDERS: Emergency Medicine
DX: I87.2 Venous insufficiency (chronic) (peripheral) (principal); Z79.51 Long term (current) use of inhaled steroids; Z79.899 Other long term (current) drug therapy; Z88.8 Allergy status to other drugs, medicaments and biological substances; Z87.891 Personal history of nicotine dependence; K21.9 Gastro-esophageal reflux disease without esophagitis; E78.00 Pure hypercholesterolemia, unspecified
CPT/HCPCS: 36415; 80053; 85025; 93971

== ENCOUNTER 2025-03-20 08:32 | Day surgery (SDC) | payer MEDICARE, OTHER ==
[2025-03-13 13:28] VITALS: BP 11/59
[~2025-03-20] VITALS: Ht 177.8 cm; Wt 73.6 kg
[~2025-03-20 08:32] MED LIST changes: +CEFAZOLIN SODIUM 2 GM/20 ML SYR IV SCH; +DILT-XR120 MG PO; +HYDROCHLOROTH12.5 M1 PO; +IBLOOD GLUCOSE TEST STRIP 1 EA TEST VI PRN; +LACTATED RINGER'S 1,000 ML IV SCH; +LIDOCAINE HCL 1% 5 ML SDV INJ ONE; +MATZIM LA180 MG PO; +MORPHINE SULFATE 4 MG/ML VIAL IV PRN; +OXYCODONE/APAP 5/325 TAB PO PRN; +PRIMIDONE50 MG PO; +STIOLTO RESPIMAT4 GM INH; +ondansetron HCL 4 MG/2 ML VIAL IV PRN
[2025-03-20] MEDS ORDERED: CEFTRIAXONE SODIUM 1 GM in SODIUM CHLORIDE 0.9% 100 ML IV SCH ×2 (08:40→18:00)
[2025-03-20 08:44] VITALS: BP 134/83
[2025-03-20] MEDS ORDERED: propofoL 200 MG/20 ML VIAL ONE (09:47)
[2025-03-20] MEDS ORDERED: fentaNYL citrate 100 MCG/2 ML VIAL ONE (09:47)
[2025-03-20] MEDS ORDERED: DEXAMETHASONE SOD PHOS 4 MG/ML VIAL ONE (09:47)
[2025-03-20] MEDS ORDERED: KETOROLAC TROMETHAMINE 30 MG/ML VIAL ONE (09:47)
[2025-03-20] MEDS ORDERED: SUGAMMADEX SODIUM 200 MG/2 ML ML ONE (09:47)
[2025-03-20] MEDS ORDERED: ondansetron HCL 4 MG/2 ML VIAL ONE (09:47)
[2025-03-20] MEDS ORDERED: LIDOCAINE HCL 2% 5 ML SDV ONE (09:47)
[2025-03-20] MEDS ORDERED: ACETAMINOPHEN 1,000 MG/100 ML VIAL ONE (09:47)
[2025-03-20] MEDS ORDERED: ROCURONIUM BROMIDE 50 MG/5 ML SYR ONE (09:47)
[2025-03-20] MEDS ORDERED: fentaNYL citrate 50 MCG/ML SDV IV PRN (10:45)
[2025-03-20] MEDS ORDERED: NALOXONE HCL 0.4 MG SYR IV PRN (10:45)
[2025-03-20] MEDS ORDERED: PROCHLORPERAZINE EDISYLATE 10 MG/2 ML VIAL IV PRN (10:45)
[2025-03-20] MEDS ORDERED: IBLOOD GLUCOSE TEST STRIP 1 EA TEST VI PRN (10:45)
[2025-03-20] MEDS ORDERED: droPERidol 5 MG/2 ML VIAL IV PRN (10:45)
[2025-03-20] MEDS ORDERED: ondansetron HCL 4 MG/2 ML VIAL IV PRN (10:45)
[2025-03-20] MEDS ORDERED: HYDROmorphone HCL 1 MG/ML SYR IV PRN (10:45)
[2025-03-20] MEDS ORDERED: LACTATED RINGER'S 1,000 ML IV ONE (11:15)
[2025-03-20 12:52] VITALS: BP 140/56
--- NOTE | 2025-03-20 12:59 | NUR ---
PT ALERT AND INTERACTIVE HE ARRIVES TO [facility] DENIES PAIN OR DISCOMFORT. FRESH H20 AND COFFEE PROVIDED NOON MEAL IS BEING PREPARED. PT ORIENTED TO BED AND ROOM CONTROLS.
--- NOTE | 2025-03-20 12:59 | NUR ---
03/20/25 1259 Kristina Marie 1152 PT ARRIVED IN PACU AWAKE WITH NO C/O'S. [address] WITH CBI RUNNING WITH LIGHT PINK DRAINAGE. 1210 RESTING. REU. 1230 AWAKENS TO VERBAL STIMULI WITH NO C/O'S. 1250 TO ROOM 119. BED PLUGGED IN AND REPORT GIVEN TO RN.
--- NOTE | 2025-03-20 13:05 | NUR ---
UR CLINICAL REVIEW: 2 MN FOR [facility]- PER SENIOR ECOLOGIST MEETS EXTENDED STAY NEED FOR TURP WITH [facility] EXTENDED STAY 03/20/25 @ 0743 ORDER MATCHES REG NO AUTH REQUIRED FOR EXTENDED STAY DISCHARGE TOMORROW AM WHEN [facility] IS DC'D 03/21/25
[2025-03-20] MEDS ORDERED: CIPRO500 MG PO (13:27)
[2025-03-20] MEDS ORDERED: OXYCODONE HCL5 MG PO (13:30)
[2025-03-20 14:11] VITALS: BP 133/57
--- NOTE | 2025-03-20 14:30 | NUR ---
PT DOZING AWAKENS TO VOICE AGREES HE IS COMFORTABLE. BILLY DRAINING CLEAR YELLOW URINE.
--- NOTE | 2025-03-20 15:08 | NUR ---
VISITED DURING SPIRITUAL CARE ROUNDS. PT APPEARED TO BE SLEEPING. DID NOT DISTURB. PROVIDED PRAYER.
--- NOTE | 2025-03-20 15:24 | NUR ---
PT EATS 100% OF NOON MEAL AND THEN HAS A PERCOCET. TUCKS PT IN AND LEAVES, HE IS NAPPING NOW. SATS 93% ON ROOM AIR PULSE OX IN PLACE.
[2025-03-20 15:47] VITALS: BP 111/51
[2025-03-20] MEDS ORDERED: SEVOFLURANE 250 ML BTL INH ONE (16:13)
--- NOTE | 2025-03-20 16:49 | NUR ---
PT RESTING EYES CLOSED IS AT BEDSIDE
--- NOTE | 2025-03-20 18:02 | NUR ---
DR ROGEL CALLS FOR UPDATE STATES PT CAN GO HOME IF HE WANTS TO. BOTH PT AND AGREE THEY WOULD LIKE TO. ABX GIVEN PER DOC WILL DC SOON
--- NOTE | 2025-03-20 18:07 | NUR ---
MED REC COMPLETE
[2025-03-21] MEDS ORDERED: CEFTRIAXONE SODIUM 1 GM in SODIUM CHLORIDE 0.9% 100 ML IV SCH (09:00)
--- NOTE | 2025-03-22 09:52 | PATH ---
[facility] [address] [place], [place] [address] Signed SPECIMEN(S): A PROSTATE CHIPS SPECIMEN SOURCE: Liu. PROSTATE CHIPS CLINICAL HISTORY: Pre-BPH "illegible word "retention. 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 These findings, together with the gross examination, support the pathologic diagnosis. GROSS DESCRIPTION: The specimen, labeled and designated "Herman, W, prostate chips," is received in formalin is a 13 g, 6.4 x 4.8 x 0.8 cm aggregate of pink-morelos to guzmán rubbery soft tissue. 100% submitted in (A1-A6). AB (under the direct supervision of a pathologist) The Gross Description was prepared using a voice recognition system. The report was reviewed for accuracy; however, sound-alike word errors, addition and/or deletions may occur. If there is any question about this report, please contact Client Services. ADDITIONAL NOTES: Immunohistochemical and/or in situ hybridization studies if performed in this case included appropriate positive controls that reacted as expected. This test was developed and its performance characteristics determined by [facility]. It has not been cleared or approved by the U.S. Food and Drug Administration. The FDA has determined that such clearance or approval is not necessary. This test is used for clinical purposes. It should not be regarded as investigational or for research. [facility] is certified under the Clinical Laboratory Improvement Amendments of 1988 (CLIA) as qualified to perform high complexity clinical laboratory testing. PATIENT NAME: HUA BISHOP PATHOLOGY DATE OF : 38 REPORT #: [id number] PHYSICIAN: WILLIAM FLORES PCP: STAR BOWERS DO REPORT IS CONFIDENTIAL AND NOT TO BE RELEASED WITHOUT AUTHORIZATION [facility] [address] [place] [place], [place] [address] Signed PERFORMING LABORATORY: Technical component was performed by [facility], [address] [place] [address] (CLIA# [id number]). Professional interpretation was performed by [facility], [address] [place] [address] (CLIA#: [id number]). Diagnostician: Will Irwin MD Pathologist Electronically Signed 03/22/2025 Copies: ~ PATIENT NAME: HUA BISHOP PATHOLOGY DATE OF : 38 REPORT #: [id number] PHYSICIAN: WILLIAM FLORES PCP: STAR BOWERS DO REPORT IS CONFIDENTIAL AND NOT TO BE RELEASED WITHOUT AUTHORIZATION
== END 2025-03-20 18:48 | disposition home or self-care (01) ==
LOC: DS 08:32 → MS 12:40 → DS 18:48
PROVIDERS: ATTEND Urology
PROC: 0VB08ZZ Excision of Prostate, Via Natural or Artificial Opening Endoscopic (ICD-10-PCS; principal; 2025-03-20 10:00)
DX: N40.1 Benign prostatic hyperplasia with lower urinary tract symptoms (principal); R33.9 Retention of urine, unspecified; I10 Essential (primary) hypertension; E78.5 Hyperlipidemia, unspecified; K21.9 Gastro-esophageal reflux disease without esophagitis; J44.9 Chronic obstructive pulmonary disease, unspecified; Z79.899 Other long term (current) drug therapy; Z88.8 Allergy status to other drugs, medicaments and biological substances
CPT/HCPCS: 00914; 51700; 88305; 96360; 96361; C1713; C1769; J0131; J0690; J0696; J1100; J1885; J2003; J2405; J2704; J3010; J3490; J7121